=== PATIENT | male | born 1995 ===

== ENCOUNTER 2020-08-14 15:23 | Emergency (ER) | payer SELFPAY ==
[~2020-08-14] VITALS: Ht 165 cm; Wt 100.0 kg
[2020-08-14] MEDS ORDERED: CEPHALEXIN500 M1 PO (20:54)
[2020-08-14] MEDS ORDERED: NORCO 325 MG-51 TAB PO (20:54)
[2020-08-14 22:36] VITALS: BP 123/71; PULSE 50; TEMP 97.6
== END 2020-08-14 22:48 ==
LOC: COL.ER 15:23
DX: M79.5 Residual foreign body in soft tissue (principal); W29.4XXA Contact with nail gun, initial encounter
CPT/HCPCS: J0690; J1885; J2405; J2704; J3010; J7120